=== PATIENT | male | born 1995 | race Caucasian/White ===

== ENCOUNTER 2024-12-14 10:15 | Emergency (ER) | payer OTHER, SELFPAY ==
--- NOTE | ~2024-12-14 | XR_ITS ---
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 No fracture. Joint spaces are normal. Soft tissues are unremarkable. No radiopaq ue foreign bodies. IMPRESSION: 1. Negative right second digit radiographs. Reviewed, dictated and finalized at location A.
--- OUTSIDE RECORDS SUMMARY | 2024-12-14 10:17 | XMS_ITS | Continuity of Care Document ---
Author Organization [facility] Address [address] [place] [address] [place] [address] Phone Care Team Providers Care Associate Doctor Name Role Phone Kar Renteria MD Unavailable Unavailable Allergies, Adverse Reactions, Alerts Substance Reaction Status Criticality No Known Allergies Active No Inform ation Medications Medication Instructions Dosage Effective Dates (start - stop) Status Comments Zoloft 25 mg tablet take 1 tablet (25MG) by oral route every day 25 MG - Active Risperdal 0.5 mg tablet take 1 Tablet (0.5MG) by oral route 2 times every day 0.5 MG - Active avoid driving or operate machines Procedures Procedure Date OFFICE/OUTPATIENT VISIT, EST PREV VISIT, NEW, AGE 18-39 Advance Directives Directive Yes / No Effective Date File Name No Information Encounters Encounter Description Practice Location Reason(s) For Visit Diagnoses Date Provider Providers Copied on Encounter [facility], [address] [place], [place], [id number], tel:[phone] [facility] No Information 4 Dexter Lakhani. [address], [address], [address] , [place]. tel:[phone] Referring Provider: [facility], [address] [facility] [place] [id number]. tel:[phone] OFFICE/OUTPAT IENT VISIT, EST [facility], [address] [place], [id number], tel:[phone] [facility] ADD (chief complaint) anxiety (chief complaint) Major depressive affective disorder, single episode, mild degreeAttention deficit disorder of childhood without mention of hyperactivity 4 Dexter Lakhani. [address] [facility] [place], [id number] , . tel: [phone] Referring Provider: Kar Renteria, [address] [facility] [address], [place], [place], [id number]. tel:[phone] PREV VISIT, NEW, AGE 18-39 [facility], [address] [place], [address], [phone] [facility] Physical (chief complaint) Routine Medical ExamRoutine Medical Exam 4 Dexter Lakhani. [address] [facility] [place], [place], [address] , [place]. tel:[phone] Family History Family Member Type Diagnosis Age At Onset Father Problem (finding) Diabetes mellitus Mother Problem (finding) Alive and well Payers Payer name Insurance type Covered republican ID Authoriza tion(s) No Information Social History Type Description Quantity Date Captured Comments Sex Male Smoking Status No Information Chief Complaint And Reason For Visit No Information Plan Of Treatment Date Type Action Status Goal Tobacco cessation counseling completed Goal Tobacco cessation counseling completed History Of Present Illness Encounter Date Complaint History Of Prese nt Illness No Information Instructions Date Instruction Additional Infor mation No Information Assessments Type Assessment Date No Information
[2024-12-14 10:19] VITALS: BP 139/88; PULSE 73; RESP 14; TEMP 36.8; O2SAT 99
--- OUTSIDE RECORDS SUMMARY | 2024-12-14 10:32 | XMS_ITS | Continuity of Care Document ---
Author Organization [facility] Address [address] [place] [address] [place] [address] Phone Care Team Providers Care Program Management Intern Name Role Phone Kar Renteria MD Unavailable Unavailable Allergies, Adverse Reactions, Alerts Substance Reaction Status Criticality No Known Allergies Active No Inform ation Medications Medication Instructions Dosage Effective Dates (start - stop) Status Comments Risperdal 0.5 mg tablet take 1 Tablet (0.5MG) by oral route 2 times every day 0.5 MG - Active avoid driving or operate machines Zoloft 25 mg tablet take 1 tablet (25MG) by oral route every day 25 MG - Active Procedures Procedure Date OFFICE/OUTPATIENT VISIT, EST PREV VISIT, NEW, AGE 18-39 Advance Directives Directive Yes / No Effective Date File Name No Information Encounters Encounter Description Practice Location Reason(s) For Visit Diagnoses Date Provider Providers Copied on Encounter [facility], [address] [place], [place], [id number], tel:[phone] [facility] No Information 4 Dexter Lakhani. [address], [address] [place], [address] , [place]. tel:[phone] Referring Provider: Kar Renteria, [address] [facility] [place], [id number]. tel:[phone] OFFICE/OUTPAT IENT VISIT, EST [facility], [address] [place] [place], [address], tel:[phone] [facility] ADD (chief complaint) anxiety (chief complaint) Major depressive affective disorder, single episode, mild degreeAttention deficit disorder of childhood without mention of hyperactivity 4 Dexter Lakhani. [address] [facility] [place], [place], [id number] , . tel: [phone] Referring Provider: Kar Renteria, [address] [facility] [address], [place], [place], [id number]. tel:[phone] PREV VISIT, NEW, AGE 18-39 [facility], [address], [id number], [phone] [facility] Physical (chief complaint) Routine Medical ExamRoutine Medical Exam 4 Dexter Lakhani. [address] [facility] [place], [address] , [place]. tel:[phone] Family History Family Member Type Diagnosis Age At Onset Father Problem (finding) Diabetes mellitus Mother Problem (finding) Alive and well Payers Payer name Insurance type Covered alliance party ID Authoriza tion(s) No Information Social History [...]
--- NOTE | 2024-12-14 10:55 | ED_ITS ---
HPI - Wound/Laceration General Chief Complaint: Wound/Laceration Stated Complaint: finger lac Time Seen by Provider: 12/14/24 10:17 History of Present Illness HPI narrative: Patient is a 29-year-old male who presents ER with laceration to the right 2nd digit. 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 There is no significant flap were displacement. Unknown last tetanus shot. He had been cutting daily turkey and ham. Bleeding controlled. Slight numbness the tip of the finger. Related Data Allergies Allergy/AdvReac Type Severity Reaction Status Date / Time No Known Allergies Allergy Verified 12/14/24 10:24 Review of Systems Constitutional: Constitutional: Reports no additional constitutional complaints Musculoskeletal: Musculoskeletal: Reports no additional musculoskeletal complaints Integumentary/Breasts: Skin/Breast: Reports system reviewed and no additional complaints, except as docu Neurologic: Reports system reviewed and no additional complaints, except as documented PMFSH Past Medical History Medical History (Updated 12/14/24 @ 10:59 by Andry De Los Santos MD) Healthy adult male Surgical History Surgical History (Updated 12/14/24 @ 10:56 by Andry De Los Santos MD) No pertinent past surgical history Exam Narrative: GENERAL: Well-appearing, well-nourished, and in no acute distress. HEAD: Normocephalic, atraumatic. HEART: Regular rate and rhythm. Normal peripheral pulses. EXTREMITIES: Right hand exam with thin laceration to the middle of the 2nd digit nail bed without extension into the ulnar lateral aspects of the finger. Slight blanching at the area of laceration with mildly decreased sensation. SKIN: Warm, dry, no rash. NEURO: Alert and oriented x3. PSYCH: Normal mood and affect. Course Course Emergency Course: No bone involvement. Tetanus updated. Wound cleanse. Discussed return precautions and signs of infection. Will place in a finger splint, do not believe patient needs any sewing. Vital Signs Vital signs: Vital Signs Temperature 98.3 F 12/14/24 10:19 Pulse Rate 73 12/14/24 10:19 Respiratory Rate 14 12/14/24 10:19 Blood Pressure 139/88 12/14/24 10:19 Pulse Oximetry 99 12/14/24 10:19 Oxygen Delivery Room Air 12/14/24 10:19 Temperature 98.3 F 12/14/24 10:19 Pulse Rate 73 12/14/24 10:19 Respiratory Rate 14 12/14/24 10:19 Blood Pressure 139/88 12/14/24 10:19 Pulse Oximetry 99 12/14/24 10:19 Oxygen Delivery Room Air 12/14/24 10:19 MDM - Wound/Laceration Imaging Data Radiologist's impression: ITS Impressions Finger X-Ray 12/14/24 10:31 IMPRESSION: 1. Negative right second digit radiographs. Discharge Plan Discharge Clinical Impression: Laceration Patient Disposition: Home Condition: Stable Instructions: Finger Laceration (ED) Additional Instructions: Your laceration seems superficial. You may wear finger splint to control your pain and prevent the cut from . Return ER if your fingers red and hot, the wound is draining pus, you have additional concerns. Your tetanus shot was updated today. Patient Language: Slovak Follow-up/Referrals: PHYSICIAN,GRANT COORDINATOR [Primary Care Provider] - 1 Week
[2024-12-14] MEDS: TETANUS,DIPHTHERIA,AC PERTUSSIS ADULT (0.5 ML) BOOSTRIX IM (10:56)
--- NOTE | 2024-12-24 15:12 | PC.NURSE ---
LATE ENTRY This note is being entered to document information to the patient's record. The following information was omitted on [12/14/24], by [ Maninder Vidal RN]. Aluminum finger splint applied to right hand, 2nd digit.
== END 2024-12-14 11:15 | disposition home or self-care (01) ==
PROVIDERS: Emergency Provider Emergency Medicine
DX: S61.210A Laceration without foreign body of right index finger without damage to nail, initial encounter (principal); Z23 Encounter for immunization; W31.82XA Contact with other commercial machinery, initial encounter; Y93.G1 Activity, food preparation and clean up
CPT/HCPCS: 29130; 73140; 90471; 90715; 99283